=== PATIENT | female | born 1980 | race African-American/Black ===

== ENCOUNTER 2016-12-19 12:10 | Emergency (ER) | payer BC ==
[~2016-12-19] VITALS: Ht 160 cm; Wt 51.2 kg
--- NOTE | ~2016-12-19 | EKG ---
PATIENT: NYLA NAPOLES UNIT #: [id number] Ventricular Rate: 90 BPM Atrial Rate: 90 BPM P-R Interval: 138 ms QRS Duration: 74 ms Q-T Interval: 386 ms QTC Calculation(Bezet): 472 ms P Candler: 81 degrees Calculated R Candler: 62 degrees Calculated T Candler: 53 degrees Diagnosis Line: Normal sinus rhythm Diagnosis Line: Normal ECG Diagnosis Line: No previous ECGs available Diagnosis Line: Confirmed by RICKY LEÓN MD ([id number]) on 12/19/2016 Diagnosis Line: 7:27:37 PM INTERPRETING MD: ROMELIA BROWNE
--- NOTE | ~2016-12-19 | CT16 ---
[facility] A Service of [facility] & [facility] RADIOLOGY TEXT RESULTS PATIENT: NYLA NAPOLES LOCATION: [facility] : 76 UNIT #: [id number] AGE: [address]: Tye Lester MD SEX: F ORDER DR: [id number] [facility] [address] [place], [place] [address] [id number] E MR#: [id number] Acc #: [id number] NAME: NYLA NAPOLES : 1980 SEX: F STUDY DATE/TIME: 12/19/2016 16:10 UNIT: [facility] ROOM: STUDY DESCRIPTION: CT Angio Chest for PE Attending Physician: Tye Lester M.D. Ordering Physician: Tye Lester M.D. Primary Care Physician: Joaquina Cervantes M.D. MEDICAL IMAGING REPORT This report is preliminary unless electronic signature is present EXAM CT angiography chest for PE History Shortness of air. Short of air since last p.m. History of PE in October. TECHNIQUE This CT exam was performed with one or more of the following radiation dose reduction techniques: automatic control, adjustment of mA and/or kV according to patient size, and iterative reconstruction. FINDINGS CT of the chest performed with CT pulmonary angiography with intravenous administration of 8 mL Isovue-370. Three-dimensional reconstructions performed through pulmonary arteries. No prior CT chest for comparison. There are limited views of the lower thorax from CT abdomen pelvis dated 12/08/2010. I have no prior dedicated pulmonary artery imaging at this institution. The thyroid shows a 1 cm hypodense nodule right thyroid lobe. No axillary mediastinal or hilar adenopathy. Heart normal in size. No pleural effusions. Visualized portions of liver, spleen, pancreas unremarkable. Status post cholecystectomy. No biliary obstruction. Spleen, pancreas, adrenal glands, upper renal poles unremarkable. No upper abdominal adenopathy. The visualized alimentary canal shows some hyperdense material in the small bowel favored to reflect patient's ingestion history. The lungs show evidence of a centrilobular emphysema. Correlate with risk factors. There is no clear indication of acute infectious or inflammatory disease. No pleural effusion or pneumothorax. No suspicious nodule. The pulmonary arteries are well opacified. No PE. No aortic aneurysm or dissection. The visualized aortic branch vessels are patent. Bony structures are remarkable. [facility]. [facility] A Service of [facility] RADIOLOGY TEXT RESULTS PATIENT: NYLA NAPOLES LOCATION: [facility] : 76 UNIT #: [id number] AGE: [address]: Tye Lester MD SEX: F ORDER DR: IMPRESSION 1. No PE. 2. No evidence of aortic aneurysm or dissection. The visualized aortic branch vessels are patent. 3. There is underlying mild centrilobular emphysema. Correlate with risk factors. Lungs otherwise unremarkable. 4. 1 cm hypodense right thyroid lobe nodule best further evaluated with elective thyroid ultrasound if not previously characterized. 5. Prior cholecystectomy. Dictated by... Kevin Garces M.D. THIS IS AN ELECTRONICALLY VERIFIED REPORT Kevin Garces M.D. at 12/20/2016 5:13 PM BRANDON/juan TD: 12/19/2016 19:39 JOB #: [id number] MEDICAL IMAGING REPORT Page 1 of 1 COPY
--- NOTE | ~2016-12-19 | CR2 ---
[facility] A Service of [facility] RADIOLOGY TEXT RESULTS PATIENT: NYLA NAPOLES LOCATION: [facility] : 76 UNIT #: [id number] AGE: [address]: Tye Lester MD SEX: F ORDER DR: [id number] [facility] [address] [place], [place] [address] [id number] E MR#: [id number] Acc #: [id number] NAME: NYLA NAPOLES : 1980 SEX: F STUDY DATE/TIME: 12/19/2016 14:03 UNIT: [facility] ROOM: STUDY DESCRIPTION: CR Abdomen Acute Series Attending Physician: Tye Lester M.D. Ordering Physician: Tye Lester M.D. Primary Care Physician: Joaquina Cervantes M.D. MEDICAL IMAGING REPORT This report is preliminary unless electronic signature is present EXAMINATION Acute abdominal series. DATE 12/19/2016 HISTORY Shortness of breath with vomiting since last night. Previous history of pulmonary embolism. Asthma. COMPARISON Acute abdominal series 02/10/2007. CT abdomen and pelvis with contrast 12/08/2010. FINDINGS Clear lungs. Heart size normal. No pleural effusion or pneumothorax. There are air-distended small bowel loops in the upper abdomen, the dominant distended up to 2.5 cm. There is qasy-cc-dgwfgxik descending colonic stool burden. Cholecystectomy changes are present. No free air or pneumatosis is identified. A single clip is seen within the midline of the pelvis. Osseous structures are within normal limits. IMPRESSION 1. There is uios-we-fldzmxaa gaseous distension of small bowel loops in the lqe-ll-dmkyj abdomen. Findings are nonspecific and could represent changes of enteritis or partial small bowel obstruction. Continued clinical and radiographic followup would be recommended. 2. No acute chest findings. 3. Cholecystectomy. [facility] A Service [facility] RADIOLOGY TEXT RESULTS PATIENT: NYLA NAPOLES LOCATION: [facility] : 76 UNIT #: [id number] AGE: [address]: Tye Lester MD SEX: F ORDER DR: Dictated by... Caitlin Wing M.D. THIS IS AN ELECTRONICALLY VERIFIED REPORT Caitlin Wing M.D. at 12/20/2016 12:27 PM [facility]/ron TD: 12/19/2016 15:39 JOB #: [id number] MEDICAL IMAGING REPORT Page 1 of 1 COPY
--- NOTE | ~2016-12-19 | CT4 ---
[facility] A Service of [facility] RADIOLOGY TEXT RESULTS PATIENT: NYLA NAPOLES LOCATION: [facility] : 76 UNIT #: [id number] AGE: [address]: Tye Lester MD SEX: F ORDER DR: [id number] [facility] [address] [place], [place] [address] [id number] E MR#: [id number] Acc #: [id number] NAME: NYLA NAPOLES : 1980 SEX: F STUDY DATE/TIME: 12/19/2016 17:05 UNIT: [facility] ROOM: STUDY DESCRIPTION: CT Abd and Pelv Wo Cont Attending Physician: Tye Lester M.D. Ordering Physician: Tye Lester M.D. Primary Care Physician: Joaquina Cervantes M.D. MEDICAL IMAGING REPORT This report is preliminary unless electronic signature is present EXAM CT abdomen and pelvis, 12/19/2016. HISTORY Short of air since last p.m. History of PE in October. Vomiting since last p.m. CTA chest for PE today. TECHNIQUE CT abdomen and pelvis performed without administration of oral or intravascular contrast for this examination. This CT exam was performed with one or more of the following radiation dose reduction techniques: automatic exposure control, adjustment of mA and/or kV according to patient size, and iterative reconstruction. FINDINGS Patient had received intravenous contrast for CT angiogram of the chest earlier today. The lung bases show no acute disease. Inferior heart and pericardium unremarkable. Liver unremarkable. Status post cholecystectomy. Spleen, pancreas, adrenal glands unremarkable. Kidneys show excreted contrast in renal collecting systems. No hydronephrosis or evidence of hydroureter. CT PELVIS: No inguinal adenopathy. Excreted contrast in urinary bladder. Enlarged uterus measuring 11.5 cm x 7 cm x 10.2 cm. Significantly increased from prior examination. There is a suggestion of some rounded areas of subtle increased density or enhancement in the uterus. Appearance likely reflects fibroid uterus. Best further evaluated with elective ultrasound. No free fluid in pelvis. The adnexal regions show no clearly acute abnormality. There is no pelvic or retroperitoneal adenopathy. Distal esophagus and stomach are unremarkable. There is some high-density material in proximal small bowel loops favored to reflect patient's ingestion history. Please correlate clinically. Oral contrast STS. [facility] A Service of [facility] RADIOLOGY TEXT RESULTS PATIENT: NYLA NAPOLES LOCATION: [facility] : 76 UNIT #: [id number] AGE: [address]: Tye Lester MD SEX: F ORDER DR: not administered for this study. Air and fluid seen throughout the small bowel to colon. I believe the patient retains normal appendix. The colon is remarkable. Unopacified vascular structures appear normal in caliber. The bony structures are unremarkable. IMPRESSION 1. No clearly acute abnormality is seen in the abdomen or pelvis. 2. Abnormally enlarged uterus measuring up to about 11.5 cm x 7 cm x 10.2 cm. Somewhat lobulated configuration with somewhat nodular areas of subtle increased density or residual enhancement. Overall appearance favors fibroid uterus. Uterus significantly increased in size since 2010. Correlate clinically. Uterus best further evaluated with elective pelvic ultrasound. 3. No fluid collections in the pelvis. No suspicious adnexal findings. 4. Status post cholecystectomy. 5. I believe the patient retains a normal appendix. 6. Remainder of alimentary canal shows no acute abnormality. Dictated by... Kevin Garces M.D. THIS IS AN ELECTRONICALLY VERIFIED REPORT Kevin Garces M.D. at 12/20/2016 5:13 PM Edis TD: 12/19/2016 20:51 JOB #: [id number] MEDICAL IMAGING REPORT Page 1 of 1 COPY
[2016-12-19 13:17] LABS: POC - CKMB <1.0 ng/mL (0.0-7.9); POC - TROPONIN <0.05 ng/mL (<=0.05)
[2016-12-19 13:28] LABS: INR 1.2; PARTIAL THROMBOPLASTIN TIME 26.5 SECONDS (23.5-31.3); PROTHROMBIN TIME (PATIENT) 13.5 SECONDS (10.0-11.7)
[2016-12-19 13:38] LABS: BASOPHIL% 0.5 % (0-2.5); EOSINOPHIL% 0.2 % (0.0-7.0); HEMATOCRIT 37.3 % (35.0-45.0); HEMOGLOBIN 12.8 gm/dL (12.0-16.0); LYMPHOCYTE# 1.5 X10e3 (1.0-3.5); LYMPHOCYTE% 38.6 % (17.0-45.0); MEAN CELL VOLUME 87.3 FL (83-96); MEAN CORPUSCULAR HGB CONC 34.4 g/dL (30-36); MEAN PLATELET VOLUME 8.5 FL (6.5-11.5); MONOCYTE# 0.2 X10e3 (0-1.0); MONOCYTE% 5.7 % (3.0-12.0); NEUTROPHIL# 2.2 X10e3 (1.5-7.1); PLATELET COUNT 306 X10e3 (140-420); RED BLOOD COUNT 4.27 X10e (3.90-5.30); RED CELL DISTRIBUTION WIDTH 13.9 % (11.0-15.5)
[2016-12-19 14:10] LABS: ALBUMIN SERUM 4.2 g/dL (3.5-5.0); BILIRUBIN, DIRECT 0.2 mg/dL (0.0-0.2); BILIRUBIN,INDIRECT 0.6 mg/dL (0.0-0.9); BILIRUBIN,TOTAL 0.8 mg/dL (0.2-2.0); CALCIUM SERUM 9.1 mg/dL (8.4-10.2); CREATININE SERUM 0.7 mg/dL (0.6-1.4); GLOM FILT RATE Estimated 127.4 mL/min (>60)
[2016-12-19 14:13] LABS: POTASSIUM 2.8 mmol/L (3.5-5.1)
[2016-12-19 14:32] LABS: DIFF IND NO
[2016-12-19 14:41] LABS: POC - CKMB <1.0 ng/mL (0.0-7.9); POC - TROPONIN <0.05 ng/mL (<=0.05)
[2016-12-19 15:39] LABS: URINE SOURCE CLEAN CATCH
[2016-12-19 15:47] LABS: URINE APPEARANCE CLEAR; URINE BILIRUBIN NEG (NEG); URINE BLOOD NEG (NEG); URINE COLOR YELLOW; URINE GLUCOSE NEG (NEG); URINE KETONE NEG (NEG); URINE LEUKOCYTE ESTERASE NEG (NEG); URINE NITRATE NEG (NEG); URINE PROTEIN NEG (NEG); URINE SPECIFIC GRAVITY 1.013 (1.003-1.035)
[2016-12-19 15:53] LABS: CULTURE INDICATED? NO
[2016-12-19 15:59] LABS: AMPHETAMINE NEG (NEG); BARBITURATES NEG (NEG); BENZODIAZEPINES NEG (NEG); COCAINE NEG (NEG); MARIJUANA NEG (NEG); OPIATES NEG (NEG); TRICYCLIC ANTIDEPRESSANTS NEG (NEG); U METHADONE NEG (NEG)
[2016-12-23] MEDS ORDERED: CARAFATE1 GM PO (04:26)
[2016-12-23] MEDS ORDERED: ERYTHROMYCIN250 M1 PO (04:27)
[2016-12-23] MEDS ORDERED: ATIVAN0.5 MG DOB (04:27)
[2016-12-23] MEDS ORDERED: PROAIR HFA8.5 GM INH (04:29)
[2016-12-23] MEDS ORDERED: XARELTO15 MG PO (04:31)
[2016-12-23] MEDS ORDERED: PROMETHEGAN50 MG PR (04:31)
[2016-12-28] MEDS ORDERED: ERYTHROMYCIN250 M1 PO (21:33)
[2016-12-28] MEDS ORDERED: PROAIR HFA8.5 GM INH (21:33)
[2016-12-28] MEDS ORDERED: XARELTO20 MG PO (21:35)
[2016-12-28] MEDS ORDERED: PHENERGAN PO (21:36)
[2016-12-28] MEDS ORDERED: METOPROLOL TAR25 MG PO (21:36)
[2016-12-28] MEDS ORDERED: COMPAZINE10 MG PO (21:37)
[2016-12-28] MEDS ORDERED: PHENERGAN25 M1 PO (21:37)
[2016-12-28] MEDS ORDERED: KLONOPIN1 MG PO (21:38)
[2016-12-28] MEDS ORDERED: ACETAMINOPHEN650 M4 PO (21:40)
[2016-12-28] MEDS ORDERED: REMERON15 MG PO (21:42)
[2016-12-28] MEDS ORDERED: PROTONIX PO (21:52)
== END 2016-12-19 18:34 | disposition home or self-care (01) ==
LOC: CED 12:10
PROVIDERS: Emergency Medicine
DX: R11.2 Nausea with vomiting, unspecified (principal); R06.00 Dyspnea, unspecified; E87.6 Hypokalemia; Z90.49 Acquired absence of other specified parts of digestive tract
CPT/HCPCS: 36415; 71275; 74022; 74176; 80048; 80076; 80307; 81003; 82553; 83690; 84484; 84703; 85025; 85610; 85730; 93005; 96361; 96374; 99285; J2550; Q9967